=== PATIENT | female | born 1970 | race Caucasian/White ===

== ENCOUNTER 2016-11-30 13:58 | Emergency (ER) | payer MEDICAID ==
[2016-11-30] MEDS ORDERED: Promethazine/Cod 6.25mg-10mg/5ml Syr UD PO STA (14:25)
--- NOTE | 2016-11-30 14:33 | ED PDOC ---
HPI: CCC, URI, Sore Throat Chief Complaint (Provider): cough History Per: Patient History/Exam Limitations: no limitations Have you had recent travel within the past 21 days to any of the following countries: [place], [place], [place] or [place]?: No Onset/Duration Of Symptoms: Days Current Symptoms Are (Timing): Still Present Sick Contacts (Context): None Associated Symptoms: Cough, Other (SOB) <Amor Ratliff - Last Filed: 11/30/16 15:40> <Anaya Mensah - Last Filed: 11/30/16 22:29> Time Seen by Provider: 11/30/16 14:15 Chief Complaint (Nursing): Cough, Cold, Congestion Additional Complaint(s): 46 y/o F with PMHx of Asthma diagnosed about 1 y/a, controlled with PRN Albuterol nebs and/or inh, presents to ED c/o persistent dry cough for the past 7 days, worse at night. Patient went to PMD 4 days ago and was prescribed Augmentin and Benzonatate with no improvement so far. C/O mild SOB associated with the cough. She has also been using albuterol nebs. Denies fever, vomiting, runny nose, headaches, diarrhea, abd pain, sick contacts, tobacco exposure. ( Amor Ratliff) Supervising Attending Note <Amor Ratliff - Last Filed: 11/30/16 15:40> - Supervising Attending Note The Documented history was done by the: Physician Maintenance Job Titles, Attending Physician The documented physical exam was done by the: Physician Maintenance Job Titles, Attending Physician - Attestation: I have personally seen and examined this patient.: Yes I have fully participated in the care of the patient.: Yes I have reviewed all pertinent clinical information, including history, physical exam and plan: Yes <Anaya Mensah - Last Filed: 11/30/16 22:29> - Notes: Notes:: Cough protracted with clear lungs to auscultation except for isolated inspiratory LEFT lung field wheeze that disappears after a few breaths. Normal lung xray. (Anaya Mensah) Past Medical History Reviewed: Nursing Documentation, Vital Signs - Medical History PMH: Asthma - Surgical History Surgical History: No Surg Hx - Family History Family History: States: Unknown Family Hx - Social History Current smoker - smoking cessation education provided: No - Immunization History Hx Tetanus Toxoid Vaccination: No Hx Influenza Vaccination: Yes Hx Pneumococcal Vaccination: No <Amor Ratliff - Last Filed: 11/30/16 15:40> <Anaya Mensah - Last Filed: 11/30/16 22:29> Vital Signs: Last Vital Signs Temp 97.5 F L 11/30/16 15:56 Pulse 78 11/30/16 15:56 Resp 19 11/30/16 15:56 BP 126/78 11/30/16 15:56 Pulse Ox 98 11/30/16 15:56 - Home Medications Home Medications: Ambulatory Orders Medication Instructions Recorded Albuterol HFA [Ventolin HFA 90 2 puff PRN PRN 05/11/15 mcg/actuation (8 g)] Azithromycin 1 tab PO DAILY #6 tab 11/30/16 Prednisone 50 mg PO DAILY #4 tablet 11/30/16 Promethazine HCl/Codeine 10 ml PO Q6 PRN #120 ml 11/30/16 [Prometh-Codein 6.25-10 mg/5 ml] - Allergies Allergies/Adverse Reactions: Allergies Allergy/AdvReac Type Severity Reaction Status Date / Time No Known Allergies Allergy Verified 07/27/16 10:28 Review of Systems ROS Statement: Except As Marked, All Systems Reviewed And Found Negative Respiratory: Positive for: Cough, Shortness of Breath <Amor Ratliff - Last Filed: 11/30/16 15:40> Physical Exam - Reviewed Nursing Documentation Reviewed: Yes Vital Signs Reviewed: Yes - Physical Exam Appears: Positive for: Non-toxic Head Exam: Positive for: NORMAL INSPECTION Skin: Positive for: Normal Color, Warm Eye Exam: Positive for: EOMI, PERRL Cardiovascular/Chest: Positive for: Regular Rate, Rhythm. Negative for: Gallop , Murmur, Friction Rub Respiratory: Positive for: Wheezing (few inspiratory wheezing L/base). Negative for: Crackles, Rales, Respiratory Distress Extremity: Positive for: Normal ROM, Capillary Refill (<2) Neurologic/Psych: Positive for: Alert, Oriented. Negative for: Motor/Sensory Deficits <Amor Ratliff - Last Filed: 11/30/16 15:40> - ECG O2 Sat by Pulse Oximetry: 100 <Amor Ratliff - Last Filed: 11/30/16 15:40> <Anaya Mensah - Last Filed: 11/30/16 22:29> - Progress ED Course And Treament: Cough, can't rule out pertussis. IMproved after treatment. CXR normal. Patient does not recall Hx of TDAP vaccination Will DC patient home with Zithromax, Promethazine and Prednisone PO F/U with PMD (Amor Ratliff) Medical Decision Making <Amor Ratliff - Last Filed: 11/30/16 15:40> <Anaya Mensah - Last Filed: 11/30/16 22:29> Medical Decision Makin46 y/o F with PMHx of intermittent asthma presents for persistent dry cough Persistent Dry Cough R/O Pneumonia Poss Bronchitis/Asthma Exacerbation CXR Solumedrol IV Promethazine PO (Amor Ratliff) Disposition - Disposition Disposition: Routine/Home Disposition Time: 15:25 <Amor Ratliff - Last Filed: 11/30/16 15:40> <Anaya Mensah - Last Filed: 11/30/16 22:29> - Clinical Impression Clinical Impression: Cough - Disposition Condition: IMPROVED Additional Instructions: [facility] en 2-3 chávez. Si fiebre, vomito, falta de aire que no mejora con tratamiento, regrese a Emergencia Prescriptions: Azithromycin 1 tab PO DAILY #6 tab Prednisone 50 mg PO DAILY #4 tablet Promethazine HCl/Codeine [Prometh-Codein 6.25-10 mg/5 ml] 10 ml PO Q6 PRN #120 ml PRN Reason: SEVERE COUGH ONLY Instructions: Pertussis (ED) Forms: [employer] [facility] (Kinyarwanda) Print Language: OMANI
[2016-11-30] MEDS ORDERED: Promethazine/Cod 6.25mg-10mg/5ml Syr UD ONE (14:42)
--- NOTE | 2016-11-30 15:21 | RAD ---
HISTORY: COMPARISON: No prior. TECHNIQUE: Chest PA and lateral FINDINGS: LINES AND TUBES: None. LUNG AND PLEURA: Lungs are well inflated and clear. HEART AND MEDIASTINUM: The heart is not enlarged. The hilar and mediastinal contours are within normal limits. SKELETAL STRUCTURES: The bony structures are within normal limits for the patient's age. VISUALIZED UPPER ABDOMEN: Normal. OTHER FINDINGS: None. IMPRESSION: No active pulmonary disease.
[2016-11-30 15:57] VITALS: BP 126/78; PULSE 78; RESP 19; TEMP 97.5; O2SAT 98
== END 2016-11-30 15:57 | disposition home or self-care (01) ==
LOC: H.ER 13:58
DX: R05 Cough (principal)

== ENCOUNTER 2017-05-02 19:53 | Emergency (ER) | payer MEDICAID ==
[2017-05-02 20:02] VITALS: PULSE 89; RESP 15; TEMP 98.1; O2SAT 99
--- NOTE | 2017-05-02 20:51 | ED PDOC ---
HPI: Hypertension/Hypotension Time Seen by Provider: 05/02/17 20:31 Chief Complaint (Nursing): High Blood Pressure Chief Complaint (Provider): high blood pressure History Per: Patient History/Exam Limitations: no limitations Onset/Duration Of Symptoms: Days (1) Current Symptoms Are (Timing): Still Present Additional History Per: Patient Additional Complaint(s): 46 y/o female presents for evaluation of elevated blood pressure x 1 day. Patient states she checked her blood pressure at home and it was 158/114. Patient also reports neck discomfort that started last night. Denies fever, headache, dizziness, vision changes, extremity numbness/weakness, chest pain, shortness of breath, palpitations, neck injury. Patient notes being under moderate amount of stress lately, unknown if could be related. Past Medical History Vital Signs: Last Vital Signs Temp 98.1 F 05/02/17 19:58 Pulse 89 05/02/17 19:58 Resp 15 05/02/17 19:58 BP 141/91 H 05/02/17 19:58 Pulse Ox 99 05/02/17 19:58 - Medical History PMH: Asthma - Family History Family History: States: Unknown Family Hx - Immunization History Hx Tetanus Toxoid Vaccination: No Hx Influenza Vaccination: Yes Hx Pneumococcal Vaccination: No - Home Medications Home Medications: Ambulatory Orders Medication Instructions Recorded Albuterol HFA [Ventolin HFA 90 2 puff PRN PRN 05/11/15 mcg/actuation (8 g)] Azithromycin 1 tab PO DAILY #6 tab 11/30/16 Prednisone 50 mg PO DAILY #4 tablet 11/30/16 Promethazine HCl/Codeine 10 ml PO Q6 PRN #120 ml 11/30/16 [Prometh-Codein 6.25-10 mg/5 ml] - Allergies Allergies/Adverse Reactions: Allergies Allergy/AdvReac Type Severity Reaction Status Date / Time No Known Allergies Allergy Verified 05/02/17 20:02 Physical Exam - Reviewed Nursing Documentation Reviewed: Yes Vital Signs Reviewed: Yes - Physical Exam Appears: Positive for: Well, Non-toxic, No Acute Distress Head Exam: Positive for: ATRAUMATIC, NORMAL INSPECTION, NORMOCEPHALIC Skin: Positive for: Normal Color Eye Exam: Positive for: Normal appearance ENT: Positive for: Normal ENT Inspection Cardiovascular/Chest: Positive for: Regular Rate, Rhythm Respiratory: Positive for: Normal Breath Sounds Gastrointestinal/Abdominal: Positive for: Normal Exam Back: Positive for: Normal Inspection, Muscle Spasm (bilateral lower cspine paraspinals, bilateral upper trapezius tender to palpate). Negative for: Vertebral Tenderness, Decreased ROM Extremity: Positive for: Normal ROM Neurologic/Psych: Positive for: Alert, Oriented - ECG ECG: Positive for: Viewed By Me (reviewed by ED attending) ECG Rhythm: Positive for: Sinus Rhythm O2 Sat by Pulse Oximetry: 99 - Progress ED Course And Treament: Patient educated on findings, advised follow up PMD tomorrow for evaluation. Return precautions given Disposition - Clinical Impression Clinical Impression: Hypertension, Neck discomfort - Patient ED Disposition Is Patient to be Admitted: No Counseled Patient/Family Regarding: Studies Performed, Diagnosis, Need For Followup - Disposition Disposition: Routine/Home Disposition Time: 21:22 Condition: IMPROVED Instructions: Low Sodium Diet (ED), Hypertension (ED), Muscle Strain (ED) Forms: [facility] (Malawian) Print Language: MACEDONIAN
[2017-05-02 21:14] VITALS: BP 137/93
== END 2017-05-02 21:33 | disposition home or self-care (01) ==
LOC: H.ER 19:53
DX: I10 Essential (primary) hypertension (principal)

== ENCOUNTER 2017-08-10 12:56 | Emergency (ER) | payer MEDICAID ==
--- NOTE | 2017-08-10 15:01 | ED PDOC ---
HPI: Female Pain Time Seen by Provider: 08/10/17 13:00 Chief Complaint (Nursing): Female Genitourinary Chief Complaint (Provider): Vaginal bleeding History Per: Patient History/Exam Limitations: no limitations Onset/Duration Of Symptoms: Days (x2 weeks) Current Symptoms Are (Timing): Still Present Associated Symptoms: denies: Fever, Chills, Vomiting Additional Complaint(s): Naty Eaton is a 46 year old female, with a past medical history of HTN, who presents to the emergency department complaining of prolonged vaginal bleeding onset for x2 weeks. Patient states she had to change her pad twice. She reports regular periods which is why this is unusual for her, and she is seen at [facility] for yearly check-ups. She denies any fever, chills , vomiting or abdominal pain. No further medical complaints. PMD: None provided. Abnormal Vaginal Bleeding: Yes Past Medical History Reviewed: Historical Data, Nursing Documentation, Vital Signs Vital Signs: Last Vital Signs Temp 98 F 08/10/17 13:14 Pulse 79 08/10/17 13:14 Resp 79 H 08/10/17 13:14 BP 130/85 08/10/17 13:14 Pulse Ox 99 08/10/17 13:14 - Medical History PMH: Asthma, HTN - Surgical History Surgical History: No Surg Hx - Family History Family History: States: Unknown Family Hx - Social History Current smoker - smoking cessation education provided: No Alcohol: None Drugs: Denies - Immunization History Hx Tetanus Toxoid Vaccination: No Hx Influenza Vaccination: Yes Hx Pneumococcal Vaccination: No - Home Medications Home Medications: Ambulatory Orders Medication Instructions Recorded Albuterol HFA [Ventolin HFA 90 2 puff PRN PRN 05/11/15 mcg/actuation (8 g)] Azithromycin 1 tab PO DAILY #6 tab 11/30/16 Prednisone 50 mg PO DAILY #4 tablet 11/30/16 Promethazine HCl/Codeine 10 ml PO Q6 PRN #120 ml 11/30/16 [Prometh-Codein 6.25-10 mg/5 ml] - Allergies Allergies/Adverse Reactions: Allergies Allergy/AdvReac Type Severity Reaction Status Date / Time No Known Allergies Allergy Verified 05/02/17 20:02 Review of Systems ROS Statement: Except As Marked, All Systems Reviewed And Found Negative Constitutional: Negative for: Fever, Chills Gastrointestinal: Negative for: Vomiting, Abdominal Pain Genitourinary Female: Positive for: Vaginal Bleeding Physical Exam - Reviewed Nursing Documentation Reviewed: Yes Vital Signs Reviewed: Yes - Physical Exam Appears: Positive for: Non-toxic, No Acute Distress Head Exam: Positive for: ATRAUMATIC, NORMOCEPHALIC Skin: Positive for: Normal Color, Warm, Dry Eye Exam: Positive for: Normal appearance Neck: Positive for: Painless ROM Cardiovascular/Chest: Positive for: Regular Rate, Rhythm. Negative for: Murmur Respiratory: Positive for: Normal Breath Sounds. Negative for: Respiratory Distress Gastrointestinal/Abdominal: Positive for: Normal Exam, Soft. Negative for: Tenderness Extremity: Positive for: Normal ROM (all extremities). Negative for: Deformity , Swelling Neurologic/Psych: Positive for: Alert, Oriented. Negative for: Motor/Sensory Deficits - Laboratory Results Result Diagrams: 08/10/17 15:00 08/10/17 15:00 - ECG O2 Sat by Pulse Oximetry: 99 (RA) Pulse Ox Interpretation: Normal Medical Decision Making Medical Decision Making: Initial Impression: vaginal bleeding rule out fibroids Initial Plan: --CMP --CBC w/ differential --POC Urine --Transvaginal [US] --Reevaluation Pelvic exam with RACHEL Milligan. Small cervical OS bleeding found. Ready for discharge. Ultrasound Report: FINDINGS: UTERUS: Anteverted measuring approximately 7.8 x 5.3 x 5.8 cm. . There are at least a 2 posterior fibroids the largest measuring approximately 2.9 cm and 2nd the measuring approximately 1.6 in greatest dimension. . There is an anterior uterine fibroid which measures approximately 1.7 cm in greatest dimension. ENDOMETRIUM: Measures 3.7 mm in diameter. Unremarkable. CERVIX: No cervical abnormality identified. RIGHT OVARY: Measures 2.2 x 1.4 x 2.3 cm. No solid mass. Normal flow. LEFT OVARY: Measures 3.5 x 1.7 x 3.4 cm with a prominent follicle or small cyst that measures approximately 1.1 cm in greatest dimension. Left ovary exhibits arterial flow FREE FLUID: No significant free fluid noted. OTHER FINDINGS: None. IMPRESSION: In homogeneous some fibroid uterus as described. Prominent follicle or small cyst left ovary. ....................... pt aware of US results, feels better. instructed her to follow up with her operating room rn for further management and return to ED with any worsening or concerning symptoms Scribe Attestation: Documented by Andrea Luque, acting as a scribe for Isaiah Smith MD Provider Scribe Attestation: All medical record entries made by the Scribe were at my direction and personally dictated by me. I have reviewed the chart and agree that the record accurately reflects my personal performance of the history, physical exam, medical decision making, and the department course for this patient. I have also personally directed, reviewed, and agree with the discharge instructions and disposition. Disposition - Clinical Impression Clinical Impression: Vaginal bleeding - Patient ED Disposition Is Patient to be Admitted: No Counseled Patient/Family Regarding: Studies Performed, Diagnosis, Need For Followup - Disposition Referrals: [facility] [Outside] [facility] [Outside] [facility] [Outside] Disposition: Routine/Home Disposition Time: 15:35 Condition: IMPROVED Additional Instructions: follow up with your primary operating room rn in 1-2 days return to the ED with any worsening or concerning symptoms Instructions: Uterine Fibroids (DC) Forms: [employer] (Malay) Print Language: TUNISIAN
[2017-08-10 15:12] LABS: BASO % 0.6 % (0.0-2.0); EOS # 0.1 K/uL (0.0-0.7); EOS % 2.4 % (0.0-4.0); HEMOGLOBIN 13.1 g/dL (12.0-16.0); MEAN CELL VOLUME 90.6 fl (81.0-99.0); MEAN CORPUSCULAR HEMOGLOBIN 31.1 pg (27.0-31.0); MEAN CORPUSCULAR HGB CONC 34.3 g/dL (33.0-37.0); MEAN PLATELET VOLUME 7.5 fl (7.2-11.7); MONO # 0.4 K/uL (0.0-0.8); MONO % 9.1 % (0.0-10.0); NEUT # 3.2 K/uL (1.8-7.0); NEUT % 66.9 % (50.0-75.0); NRBC % 0.2 % (0.0-0.0); RBC 4.22 Mil/uL (3.80-5.20); RED CELL DISTRIBUTION WIDTH 14.1 % (11.5-14.5); WHITE BLOOD COUNT 4.7 K/uL (4.8-10.8)
[2017-08-10 15:24] LABS: ALB/GLOB RATIO 1.2 (1.0-2.1); ALBUMIN 4.5 g/dL (3.5-5.0); ALT/SGPT 30 U/L (9-52); AST/SGOT 22 U/L (14-36); BLOOD UREA NITROGEN 10 mg/dl (7-17); CALCIUM 9.7 mg/dL (8.4-10.2); GFR AFRICAN-AMERICAN > 60; GFR NON-AFRICAN AMERICAN > 60
--- NOTE | 2017-08-10 17:02 | US ---
HISTORY: Vaginal bleeding COMPARISON: None available. TECHNIQUE: Transvaginal sonographic evaluation of the pelvis performed. FINDINGS: UTERUS: Anteverted measuring approximately 7.8 x 5.3 x 5.8 cm. . There are at least a 2 posterior fibroids the largest measuring approximately 2.9 cm and 2nd the measuring approximately 1.6 in greatest dimension. . There is an anterior uterine fibroid which measures approximately 1.7 cm in greatest dimension. ENDOMETRIUM: Measures 3.7 mm in diameter. Unremarkable. CERVIX: No cervical abnormality identified. RIGHT OVARY: Measures 2.2 x 1.4 x 2.3 cm. No solid mass. Normal flow. LEFT OVARY: Measures 3.5 x 1.7 x 3.4 cm with a prominent follicle or small cyst that measures approximately 1.1 cm in greatest dimension. Left ovary exhibits arterial flow FREE FLUID: No significant free fluid noted. OTHER FINDINGS: None. IMPRESSION: In homogeneous some fibroid uterus as described. Prominent follicle or small cyst left ovary.
[2017-08-10 17:46] LABS: SQUAMOUS EPITHIAL < 1 /hpf (0-5); URINE BILIRUBIN NEGATIVE (NEGATIVE); URINE BLOOD LARGE (NEGATIVE); URINE CLARITY CLEAR (Clear); URINE COLOR STRAW (YELLOW); URINE GLUCOSE (UA) NEG (Normal); URINE LEUKOCYTE ESTERASE NEG Leu/uL (Negative); URINE PROTEIN NEGATIVE (NEGATIVE); URINE UROBILINOGEN 0.2-1.0 mg/dL (0.2-1.0)
[2017-08-10 18:10] VITALS: BP 123/67; PULSE 88; TEMP 98
[2017-08-10 19:35] VITALS: RESP 18; O2SAT 99
== END 2017-08-10 19:35 | disposition home or self-care (01) ==
LOC: H.ER 12:56
DX: N93.9 Abnormal uterine and vaginal bleeding, unspecified (principal); D25.9 Leiomyoma of uterus, unspecified; I10 Essential (primary) hypertension; J45.909 Unspecified asthma, uncomplicated

== ENCOUNTER 2017-12-25 09:48 | Emergency (ER) | payer MEDICAID ==
[2017-12-25 09:52] VITALS: TEMP 98.5
--- NOTE | 2017-12-25 10:29 | ED PDOC ---
HPI: Hypertension/Hypotension Time Seen by Provider: 12/25/17 10:10 Chief Complaint (Nursing): High Blood Pressure Additional Complaint(s): Pt presents to ED with c/o elevated BP this AM at home, systolic ~160, associated with frontal FERGUSON that has since resolved. Pt states compliance with HTN med. Denies visual changes, neck stiffness, paresthesias, weakness, CP, SOB , back pain. Past Medical History Reviewed: Nursing Documentation, Vital Signs Vital Signs: Last Vital Signs Temp 98.5 F 12/25/17 10:03 Pulse 82 12/25/17 10:03 Resp 18 12/25/17 10:03 BP 125/85 12/25/17 09:52 Pulse Ox 100 12/25/17 10:03 - Medical History PMH: Asthma, HTN Denies: Chronic Kidney Disease - Family History Family History: States: Unknown Family Hx - Social History Current smoker - smoking cessation education provided: No Alcohol: None - Immunization History Hx Tetanus Toxoid Vaccination: No Hx Influenza Vaccination: Yes Hx Pneumococcal Vaccination: No - Home Medications Home Medications: Ambulatory Orders Medication Instructions Recorded Losartan/Hydrochlorothiazide 1 each PO DAILY 08/30/17 [Losartan-Hctz 50-12.5 mg Tab] Omeprazole 40 mg PO DAILY 08/30/17 - Allergies Allergies/Adverse Reactions: Allergies Allergy/AdvReac Type Severity Reaction Status Date / Time No Known Allergies Allergy Verified 05/02/17 20:02 Review of Systems Constitutional: Negative for: Fever, Chills Eyes: Negative for: Vision Change Cardiovascular: Negative for: Chest Pain, Palpitations Respiratory: Negative for: Cough, Shortness of Breath Gastrointestinal: Negative for: Nausea, Vomiting, Abdominal Pain, Diarrhea Genitourinary Female: Negative for: Dysuria, Hematuria Musculoskeletal: Negative for: Neck Pain Skin: Negative for: Rash, Lesions Neurological: Positive for: Headache. Negative for: Weakness, Numbness, Incoordination, Change in Speech, Confusion, Seizures, Altered Mental Status, Dizziness Physical Exam - Reviewed Nursing Documentation Reviewed: Yes Vital Signs Reviewed: Yes - Physical Exam Appears: Positive for: Well, No Acute Distress Head Exam: Positive for: ATRAUMATIC, NORMAL INSPECTION Skin: Positive for: Normal Color, Warm, Dry Eye Exam: Positive for: Normal appearance, EOMI, PERRL Neck: Positive for: Normal, Painless ROM, Supple Cardiovascular/Chest: Positive for: Regular Rate, Rhythm Respiratory: Positive for: Normal Breath Sounds Extremity: Positive for: Normal ROM Neurologic/Psych: Positive for: Alert, 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 Negative for: Motor/Sensory Deficits, Aphasia, Facial Droop - ECG O2 Sat by Pulse Oximetry: 100 Medical Decision Making Medical Decision Makin yo female with elevated BP at home and FERGUSON. - CT head Accession No. : [id number] Patient Name / ID : MICHELINE GAN / [id number] Exam Date : 12/25/2017 11:15:51 ( Approved ) Study Comment : Sex / Age : F / 47Y Creator : Yvon Stephens MD Dictator : Auto Transmission Specialist : Radiographer Angiogram : Yvon Stephens MD Approver2 : Report Date : 12/25/2017 11:33:58 My Comment : Date of service: 12/25/2017 PROCEDURE: CT HEAD WITHOUT CONTRAST. HISTORY: FERGUSON COMPARISON: None available. TECHNIQUE: Axial computed tomography images were obtained through the head/brain without intravenous contrast. Radiation dose: Total exam DLP = mGy-cm. This CT exam was performed using one or more of the following dose reduction techniques: Automated exposure control, adjustment of the mA and/or kV according to patient size, and/or use of iterative reconstruction technique. FINDINGS: HEMORRHAGE: No acute parenchymal, subarachnoid or extra-axial hemorrhage. BRAIN: There appears to be mild periventricular white matter ischemic changes most conspicuous in the left perifrontal horn region and left anterolateral basal ganglia. Findings suggest mild central volume loss evidenced by disproportionate enlargement of the ventricles as compared the sulci. VENTRICLES: The lateral ventricles are prominent, felt to be secondary to central volume loss however the ventricles do not appear to be under tension. CALVARIUM: Unremarkable. PARANASAL SINUSES: Moderate mucosal thickening present within both maxillary antra and multiple ethmoid air cells extending superiorly into the frontal sinus. There is also minor mucosal thickening in the left chamber sphenoid sinus MASTOID AIR CELLS: Unremarkable as visualized. No inflammatory changes. OTHER FINDINGS: None. IMPRESSION: No acute intracranial hemorrhage. There appears to be mild periventricular white matter ischemic changes most conspicuous in the left perifrontal horn region and left anterolateral basal ganglia. Findings suggest mild central volume loss evidenced by disproportionate enlargement of the ventricles as compared the sulci. Copy of CT report given to patient. Disposition - Clinical Impression Clinical Impression: Hypertension, Headache - Disposition Referrals: Veto Shelton MD [Family Provider] - Disposition: Routine/Home Disposition Time: 12:28 Condition: GOOD Instructions: High Blood Pressure in Adults, Headache, Adult Forms: [facility] (Cymro) Print Language: GERMAN
[2017-12-25 11:04] VITALS: BP 137/74; PULSE 68; RESP 16
--- NOTE | 2017-12-25 11:35 | CT ---
Date of service: 12/25/2017 PROCEDURE: CT HEAD WITHOUT CONTRAST. HISTORY: FERGUSON COMPARISON: None available. TECHNIQUE: Axial computed tomography images were obtained through the head/brain without intravenous contrast. Radiation dose: Total exam DLP = mGy-cm. This CT exam was performed using one or more of the following dose reduction techniques: Automated exposure control, adjustment of the mA and/or kV according to patient size, and/or use of iterative reconstruction technique. FINDINGS: HEMORRHAGE: No acute parenchymal, subarachnoid or extra-axial hemorrhage. BRAIN: There appears to be mild periventricular white matter ischemic changes most conspicuous in the left perifrontal horn region and left anterolateral basal ganglia. Findings suggest mild central volume loss evidenced by disproportionate enlargement of the ventricles as compared the sulci. VENTRICLES: The lateral ventricles are prominent, felt to be secondary to central volume loss however the ventricles do not appear to be under tension. CALVARIUM: Unremarkable. PARANASAL SINUSES: Moderate mucosal thickening present within both maxillary antra and multiple ethmoid air cells extending superiorly into the frontal sinus. There is also minor mucosal thickening in the left chamber sphenoid sinus MASTOID AIR CELLS: Unremarkable as visualized. No inflammatory changes. OTHER FINDINGS: None. IMPRESSION: No acute intracranial hemorrhage. There appears to be mild periventricular white matter ischemic changes most conspicuous in the left perifrontal horn region and left anterolateral basal ganglia. Findings suggest mild central volume loss evidenced by disproportionate enlargement of the ventricles as compared the sulci.
[2017-12-25 12:24] VITALS: O2SAT 100
== END 2017-12-25 12:36 | disposition home or self-care (01) ==
LOC: H.ER 09:48
DX: I10 Essential (primary) hypertension (principal); R51 Headache